=== PATIENT | female | born 1965 | race Caucasian/White ===

== ENCOUNTER 2017-03-14 18:19 | Emergency (ER) | payer OTHER ==
[~2017-03-14] VITALS: Ht 162.6 cm; Wt 100.0 kg
[2017-03-14 20:12] VITALS: BP 138/89
[2017-03-14] MEDS ORDERED: TraMADol HCL 50 MG TABLET PO ONE (20:45)
== END 2017-03-14 20:53 | disposition home or self-care (01) ==
LOC: EMS 18:21
DX: M25.561 Pain in right knee (principal)
CPT/HCPCS: 29505; 99284

== ENCOUNTER 2018-10-08 10:06 | Emergency (ER) | payer SELFPAY ==
[~2018-10-08] VITALS: Ht 160 cm; Wt 100.0 kg
[2018-10-08 10:24] LABS: GLUCOSE,POINT OF CARE 96 MG/DL (70-110)
[2018-10-08] MEDS ORDERED: PERTUSS(ACELL),DIPH,TET VAC/PF 0.5 ML VIAL IM ONE (11:30)
[2018-10-08] MEDS ORDERED: IBUPROFEN 800 MG TABLET PO ONE (11:30)
[2018-10-08 12:15] VITALS: BP 133/78
== END 2018-10-08 13:12 | disposition home or self-care (01) ==
LOC: EMS 10:08
DX: S02.2XXA Fracture of nasal bones, initial encounter for closed fracture (principal); S00.83XA Contusion of other part of head, initial encounter; R04.0 Epistaxis; W10.9XXA Fall (on) (from) unspecified stairs and steps, initial encounter; Y93.01 Activity, walking, marching and hiking; Y92.89 Other specified places as the place of occurrence of the external cause; Y99.8 Other external cause status
CPT/HCPCS: 70160; 90471; 90715

== ENCOUNTER → 2024-11-07 | Emergency (ER) | payer MEDICAID, OTHER ==
[~2024-11-07] VITALS: Ht 160 cm; Wt 100.9 kg
[2024-11-07 21:24] VITALS: TEMP 98.3
[2024-11-07] MEDS: TraMADol HCL 50 MG TABLET PO ONE (22:40)
[2024-11-07 23:53] VITALS: BP 124/79; PULSE 72; RESP 18; O2SAT 100
== END | disposition home or self-care (01) ==
LOC: EMS 20:45
DX: S90.32XA Contusion of left foot, initial encounter (principal); W19.XXXA Unspecified fall, initial encounter; Y93.89 Activity, other specified; Y92.89 Other specified places as the place of occurrence of the external cause; Y99.8 Other external cause status
CPT/HCPCS: 99283